=== PATIENT | female | born 1985 | race African-American/Black ===

== ENCOUNTER 2016-05-05 20:30 | Emergency (ER) | payer MEDICAID ==
[~2016-05-05] VITALS: Ht 160 cm; Wt 76.0 kg
[~2016-05-05 20:30] MED LIST: ZOFR4TAB3 SL
[2016-05-05 20:33] VITALS: BP 123/60; PULSE 79; RESP 14; TEMP 98.2; O2SAT 98
== END 2016-05-05 21:15 | disposition left against medical advice (07) ==
LOC: NED 20:30
DX: R68.89 Other general symptoms and signs (principal)
CPT/HCPCS: 99281

== ENCOUNTER → 2016-05-14 | Day surgery (SDC) | payer MEDICAID ==
[~2016-05-14] VITALS: Ht 158.8 cm; Wt 75.9 kg
[~2016-05-14] MED LIST changes: +DO NOT ADM ANY ANTICOAGULANT DRUGS XX PRN; +FAMOTIDINE 20 MG/2 ML VIAL ONE; +INSULIN HUMAN REGULAR 1,000 UNITS/10 ML VIAL SQ PRN; +LACTATED RINGER'S 1000 ML IV SCH; +METOPROLOL TARTRATE 25 MG TAB PO PRN; +MIDAZOLAM HCL 2 MG/2 ML VIAL ONE; +ONDANSETRON HCL 4 MG/2 ML VIAL IV PUSH ONE; +OXYTOCIN 10 UNIT/ML AMP ONE; +PROPOFOL 200 MG/20 ML AMP IV ONE; +SODIUM CHLORID 0.9% 500 ML IV SCH; -ZOFR4TAB3 SL; +fentaNYL CITRATE 250 MCG/5 ML AMP ONE; +oxyCODONE/ACETAMINOPHEN 5 MG/325 MG TAB PO PRN
[2016-05-14 10:40] VITALS: BP 121/73; PULSE 73; RESP 18; TEMP 97.7; O2SAT 99
[2016-05-14 11:44] LABS: AUTOMATED NEUTROPHIL # 3.8 TH/MM3 (1.8-7.7); BASOPHIL % 0.3 % (0.0-2.0); EOSINOPHIL # 0.1 TH/MM3 (0-0.4); EOSINOPHIL % 1.1 % (0.0-4.0); HEMATOCRIT 34.8 % (35.0-46.0); HEMO FLAGS DIFF FINAL; LYMPHOCYTE # 2.1 TH/MM3 (1.0-4.8); MEAN CORPUSCULAR HEMOGLOBIN 29.7 PG (27.0-34.0); MEAN CORPUSCULAR HGB CONC 34.9 % (32.0-36.0); MONO % 6.8 % (0.0-8.0); NEUT % 58.8 % (16.0-70.0); PLATELET COUNT 272 TH/MM3 (150-450); RED BLOOD COUNT 4.09 MIL/MM3 (4.00-5.30); RED CELL DISTRIBUTION WIDTH 13.7 % (11.6-17.2); WHITE BLOOD COUNT 6.4 TH/MM3 (4.0-11.0)
--- NOTE | 2016-05-14 13:29 | PD.OP ---
Operative Report Date of Surgery: May 14, 2016 Preoperative Diagnosis: (1) Missed Postoperative Diagnosis: (1) Missed Procedure: D&C with suction Anesthesia: general Surgeon: Dejon Shin Ice Maker(s): Neri Escobedo MS3 Operation and Findings: poc in uterus Dejon Shin MD May 14, 2016 13:28
--- NOTE | 2016-05-14 13:39 | HHI.DCPOC ---
Discharge Care Plan Diagnosis: (1) Missed Report Symptoms to Your Doctor -Temperate above 100.5 degrees -Redness, of incision or excessive or foul smelling drainage -Unusual pain or calf pain -Increased vaginal bleeding -Painful or difficulty urinating -Feelings of extreme sadness or anxiety after 2 weeks Goals to Promote Your Health * To prevent worsening of your condition and complications * To maintain your health at the optimal level Directions to Meet Your Goals Take your medications as prescribed Follow your dietary instruction Follow activity as directed Ensure plenty of rest for recovery Drink fluids for hydration Keep your appointments as scheduled Take your immunizations and boosters as scheduled If your symptoms worsen call your PCP, if no PCP go to Urgent Care Center or Emergency Room Smoking is Dangerous to Your Health. Avoid second hand smoke Call the 24-hour crisis hotline for domestic abuse at Dejon Shin MD May 14, 2016 13:39
[2016-05-14 14:50] VITALS: BP 101/67; PULSE 69; RESP 16; TEMP 97.1; O2SAT 100
--- NOTE | 2016-05-15 17:45 | MP ---
cc: SANDIP SHIN M.D. DATE OF SURGERY: 05/14/2016. PREOPERATIVE DIAGNOSIS: Missed . POSTOPERATIVE DIAGNOSIS: Missed . OPERATIVE PROCEDURE PERFORMED: A dilatation and curettage with suction curet. SURGEON: Sandip Shin MD. BRINE MAKER: Neri Escobedo MS-3. ANESTHESIA: General, Dr. Daniel. COMPLICATIONS: None. FINDINGS: 15-week sized uterus, products of conception, intrauterine. DESCRIPTION OF THE PROCEDURE IN DETAIL: After informed consent, the patient was taken to the operating room where she was placed under general anesthesia. She was placed in the supine position with legs in the candy-cane stirrups. Time-out was taken. The abdomen and perineum were prepped and draped in normal sterile fashion. The bladder was drained with a Ascencio catheter. A speculum was placed in the vagina. Cervix was grasped with a single-tooth tenaculum. The cervix was dilated to accommodate a 8-mm suction curette and that was passed to 15 cm where all products of conception were evacuated. A sharp curette was passed in all four quadrants so there were no remaining products of conception and then the suction curette was passed one last time. The procedure was ended. All instruments were removed from the vagina. There was no active bleeding at the end of the case. The patient tolerated the procedure well. She was taken to the recovery room in stable condition. MD MUNIRA Shook/CLAUDIA /1:32 PM /5:41 PM
== END | disposition home or self-care (01) ==
LOC: HSDC 10:32
PROVIDERS: ATTEND Obstetrics & Gynecology
DX: O02.1 Missed abortion (principal); J45.909 Unspecified asthma, uncomplicated
CPT/HCPCS: 01965; 59820; 85025; 86900; 86901; 88305; J2250; J2405; J3010; J2590